=== PATIENT | male | born 1970 | race Two or more races ===

== ENCOUNTER 2016-03-19 10:10 | Emergency (ER) | payer OTHER ==
[2015-10-12 22:03] VITALS: BP_DIAS 79
[~2016-03-19 10:10] MED LIST: HYDR-971 PO; OMEP20CA9 PO; PROM25TA10 PO
[2016-03-19] MEDS ORDERED: HYDROMORPHONE 2 MG/ML VIAL. IV/SQ PRN (10:30)
[2016-03-19] MEDS ORDERED: IV NORMAL SALINE 1000ML BAG 1,000 ML IV SCH (10:30)
[2016-03-19 10:49] LABS: BASO % 0 % (0-3); EOS % 1 % (0-3); HEMATOCRIT 44.6 % (39.0-53.0); HEMOGLOBIN 15.3 g/dL (13.0-17.5); LYMPH # 0.9 x10^3/uL (1.0-4.8); LYMPH % 10 % (24-48); MEAN CORPUSCULAR HEMOGLOBIN 30 pg (25-35); MEAN CORPUSCULAR HGB CONC 34 g/dL (31-37); MEAN CORPUSCULAR VOLUME 87 fL (79-100); MONO % 5 % (0-9); NEUT % 83 % (31-73); PLATELET COUNT 191 x10^3/uL (140-400); RED BLOOD COUNT 5.15 x10^6/uL (4.30-5.70); RED CELL DISTRIBUTION WIDTH 13.2 % (11.5-14.5); WHITE BLOOD COUNT 8.9 x10^3/uL (4.0-11.0)
[2016-03-19 10:59] LABS: CREATININE 0.7 mg/dL (0.7-1.3)
[2016-03-19] MEDS ORDERED: IOHEXOL 300 MG/ML 75 ML VIAL IV ONE (11:00)
[2016-03-19] MEDS ORDERED: CONTRAST GIVEN MC PRN (11:00)
[2016-03-19 11:01] LABS: INR 1.1 (0.8-1.1); PROTHROMBIN TIME PATIENT 13.5 SEC (11.7-14.0)
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
[2016-03-19] MEDS ORDERED: HYDR-2666 PO (12:13)
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
[2016-03-19 12:16] LABS: BILIRUBIN,URINE NEGATIVE (NEG); GLUCOSE,URINE NEGATIVE (NEG); NITRITE,URINE NEGATIVE (NEG); PROTEIN,URINE NEGATIVE (NEG-TRACE); UROBILINOGEN,URINE 0.2 mg/dL (0.2 mg/dL)
[2016-03-19 12:21] LABS: BARBITURATES NEG (NEG); BENZODIAZEPINES NEG (NEG); CANNABINOIDS NEG (NEG); COCAINE NEG (NEG); ETHANOL, URINE NEG (NEG); METHADONE NEG (NEG); OPIATES NEG (NEG); PHENCYCLIDINE NEG (NEG)
[2016-03-19 12:24] LABS: RBC,URINE OCC /HPF (0-2)
[2016-03-19 12:25] LABS: BACTERIA,URINE FEW /HPF (0-FEW); SQUAMOUS EPITHELIAL CELL,UR OCC /LPF; WBC,URINE OCC /HPF (0-4)
== END 2016-03-19 12:25 | disposition home or self-care (01) ==
LOC: ER 10:10
DX: S00.83XA Contusion of other part of head, initial encounter (principal); M54.2 Cervicalgia; V49.50XA Passenger injured in collision with unspecified motor vehicles in traffic accident, initial encounter; Y93.89 Activity, other specified; Y92.89 Other specified places as the place of occurrence of the external cause; Y99.8 Other external cause status
CPT/HCPCS: 36415; 70450; 71260; 72125; 74177; 80048; 81001; 83605; 85027; 85610; 85730; 86850; 86900; 86901; 96374; 99285; G0480; G0481; J1170; J7030; Q9967